=== PATIENT | female | born 1965 | race Caucasian/White ===

== ENCOUNTER 2020-12-03 13:31 | Emergency (ER) | payer OTHER ==
[~2020-12-03] VITALS: Ht 170.2 cm; Wt 86.2 kg
[2020-12-03] MEDS ORDERED: WELLBUTRIN SR150 MG PO (13:47)
[2020-12-03] MEDS ORDERED: MELOXICAM15 MG PO (13:47)
[2020-12-03] MEDS ORDERED: DOXYCYCLINE 10100 MG PO ×3 (14:10→16:03)
[2020-12-03] MEDS ORDERED: NORCO5 PO ×2 (14:10→15:18)
[2020-12-03 15:23] VITALS: BP 146/72
== END 2020-12-03 15:24 | disposition home or self-care (01) ==
LOC: M.ERS 13:31
DX: L02.31 Cutaneous abscess of buttock (principal); M19.90 Unspecified osteoarthritis, unspecified site; Z79.899 Other long term (current) drug therapy; Z88.8 Allergy status to other drugs, medicaments and biological substances